=== PATIENT | female | born 1980 | race Caucasian/White ===

== ENCOUNTER → 2022-09-12 | Emergency (ER) | payer OTHER ==
[~2022-09-12] VITALS: Ht 175.3 cm; Wt 74.4 kg
[~2022-09-12] MED LIST: KETO10TA2 PO
== END | disposition home or self-care (01) ==
LOC: ER 13:33
DX: S63.693A Other sprain of left middle finger, initial encounter (principal)

== ENCOUNTER 2023-06-18 15:21 | Emergency (ER) | payer OTHER ==
[~2023-06-18] VITALS: Ht 175.3 cm; Wt 77.1 kg
[2023-06-18] MEDS ORDERED: VITAMIN C100 MG PO (16:07)
[2023-06-18] MEDS ORDERED: IRON18 MG PO (16:08)
[2023-06-18] MEDS ORDERED: VITAMIN B122500 MC1 PO (16:08)
== END 2023-06-18 18:28 | disposition home or self-care (01) ==
LOC: ER 15:21
DX: S30.0XXA Contusion of lower back and pelvis, initial encounter (principal); W17.89XA Other fall from one level to another, initial encounter; Y93.89 Activity, other specified; Y92.520 Airport as the place of occurrence of the external cause; Y99.8 Other external cause status